=== PATIENT | female | born 1980 ===

== ENCOUNTER 2023-02-09 08:18 | Outpatient (REF) | payer OTHER, SELFPAY ==
[2023-02-09 08:32] LABS: MANUAL DIFF FLAG NO
[2023-02-09 08:51] LABS: Basophils Percent Auto 0.3 % (0-2); Eosinophils Absolute Auto 0.1 X10*3/uL (0.0-0.4); Eosinophils Percent Auto 1.2 % (0-4); Hematocrit 44.5 % (37.0-47.0); Hemoglobin 14.5 g/dl (12.0-16.0); Imm Gran Abs Auto 0.02 X10*3/uL (0.00-0.03); Imm Gran Pct Auto 0.3 % (0.0-0.4); Lymphocytes Absolute Auto 2.1 X10*3/uL (1.2-4.9); Lymphocytes Percent Auto 30.9 % (20-40); Mean Corpuscular HGB Conc 32.6 g/dl (31.0-35.0); Mean Corpuscular Volume 91.9 fL (80.0-98.0); Mean Platelet Volume 9.6 fL (9.4-12.3); Monocytes Absolute Auto 0.5 X10*3/uL (0.1-1.2); Monocytes Percent Auto 7.8 % (2-11); Neutrophils Percent Auto 59.5 % (45-73); Platelet Count 300 X10*3/uL (160-400); Red Blood Count 4.84 X10*6/uL (4.20-5.50); Red Cell Distribution Width 13.7 % (11.0-16.0); White Blood Count 6.8 X10*3/uL (4.8-10.8)
[2023-02-09 09:30] LABS: Alanine Aminotransferase 11 U/L (0-31); Albumin Level 3.6 g/dL (3.5-5.0); Alkaline Phosphatase 64 U/L (39-117); Anion Gap 11 (12-20); Aspartate Amino Transferase 14 U/L (5-31); Bilirubin Total 0.4 mg/dL (0.0-1.0); Blood Urea Nitrogen 12 mg/dL (9-16); Calcium 8.8 mg/dL (8.4-10.2); Carbon Dioxide 23 mmol/L (22-29); Chloride 109 mmol/L (96-108); Cholesterol 155 mg/dL; Estimated Glomerular Filt Rate > 60; Glucose Fasting 94 mg/dL (60-99); HDL Cholesterol 41 mg/dL; LDL Cholesterol Calculated 102 mg/dl; Potassium 4.3 mmol/L (3.3-5.1); Sodium 139 mmol/L (135-145); Total Protein 6.9 g/dL (6.5-8.0); Triglycerides 62 mg/dL
[2023-02-09 09:45] LABS: Thyroid Stimulating Hormone 1.11 uIU/mL (0.32-4.0)
== END 2023-02-09 08:19 | disposition home or self-care (01) ==
LOC: HO.LAB 08:18
PROVIDERS: PCP Internal Medicine; Visit Provider Internal Medicine
DX: Z00.00 Encounter for general adult medical examination without abnormal findings (principal); E66.01 Morbid (severe) obesity due to excess calories; Z68.42 Body mass index [BMI] 45.0-49.9, adult
CPT/HCPCS: 36415; 80053; 80061; 84443; 85025

== ENCOUNTER 2023-02-12 09:55 | Outpatient (REF) | payer OTHER, SELFPAY ==
--- NOTE | ~2023-02-12 | MM_ITS ---
EXAMINATION: MM SCREENING DIGITAL BREAST TOMOSYNTHESIS, BILATERAL CLINICAL INFORMATION: Screening. Asymptomatic. The lifetime risk of breast cancer based on the Tyrer-Cuzick Model is 10%. COMPARISON: Mammography: This is a baseline mammogram TECHNIQUE: Digital breast tomosynthesis is performed in both the craniocaudal and mediolateral oblique views along with computer-aided detection (CAD). Synthesized 2D images are generated from the tomosynthesis. FINDINGS: The breasts are heterogeneously dense, which may obscure small masses (ACR BI-RADS breast composition Category c). There are no significant masses, abnormal calcifications, or other abnormalities. MM/MM tomosynthesis screening BI IMPRESSION: No mammographic evidence of malignancy. ASSESSMENT: BI-RADS BI-RADS 1 - Negative RECOMMENDATION: Routine annual mammography screening. 1 year F/U This patient's information was entered into a reminder system with a target due date for their next mammogram.
== END 2023-02-12 09:56 | disposition home or self-care (01) ==
LOC: HO.MAMMO 09:55
PROVIDERS: PCP Internal Medicine; Visit Provider Internal Medicine
DX: Z12.31 Encounter for screening mammogram for malignant neoplasm of breast (principal)
CPT/HCPCS: 77063; 77067

== ENCOUNTER → 2023-02-12 10:00 | Outpatient (BNV) | payer OTHER, SELFPAY | PROVIDERS: PCP Internal Medicine; Visit Provider Radiology Diagnostic Radiology | DX: Z12.31 Encounter for screening mammogram for malignant neoplasm of breast (principal) | CPT/HCPCS: 77063; 77067 ==

== ENCOUNTER 2023-04-29 14:31 | Outpatient (REF) | payer OTHER, SELFPAY ==
[2023-04-30 09:44] LABS: CT PCR NOT DETECTED (Not Detect.); NG PCR NOT DETECTED (Not Detect.)
[2023-04-30 11:39] LABS: BV Int Neg Control Negative (Negative); BV Int Pos Control Positive (Positive)
[2023-05-04 04:53] LABS: HPV mRNA E6/E7 rflx Not Detected (Not Detected)
== END 2023-04-29 14:32 | disposition home or self-care (01) ==
LOC: HO.LNP 14:31
PROVIDERS: PCP Internal Medicine; Visit Provider Advanced Practice Midwife
DX: Z01.419 Encounter for gynecological examination (general) (routine) without abnormal findings (principal); Z11.51 Encounter for screening for human papillomavirus (HPV); Z20.2 Contact with and (suspected) exposure to infections with a predominantly sexual mode of transmission
CPT/HCPCS: 0353U; 87480; 87510; 87624; 87660; 88142

== ENCOUNTER 2023-04-29 14:31 | Outpatient (AMB) | payer OTHER, SELFPAY ==
[2023-04-29 14:40] VITALS: BP 128/80; BMI 46.9
--- NOTE | 2023-04-29 14:40 | MHC.OFFVIS ---
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 She has a history of abnormal Pap smears and leaps. She gave to 1 child 28 years ago by she was 14 years old at the time. She has been with the same partner for 20 years she has no particular worries about STIs but is open to testing. She gets regular normal periods and they are not a problem for her. 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 She was going to the gym with her mom but her mom's back was hurting so they had to stop that. She has been referred to the weight loss management program but has not heard anything yet and may walk over there to the office to check on the referral after this appointment. She has tried things like having a protein shake but it is hard to do at work, because there are social pressures from colleagues . [facility], [facility] Medical History (Updated 04/29/23 @ 15:39 by Stefanie Aguila CNM) Hx of LEEP (loop electrosurgical excision procedure) of cervix complicating Surgical History History of Family History Mother Hypertension Father HIV (human immunodeficiency virus infection) Substance use disorder Maternal Grandmother Breast cancer metastasized to lung Brother Mental health disorder Social History (Updated 04/29/23 @ 14:45 by TERI Vela) Housing: Apartment Alcohol intake: current Alcohol intake frequency: a few times a month Alcohol type: beer, wine and hard liquor Patient Tobacco Use Status: Current everyday Tobacco user Tobacco use type: Cigarette Cigarettes Per Day: 12 e-Cigarette/Vaping Use: Never Used Second Hand Smoke Exposure: No service: No Current occupational status: employed Current occupational exposures/hazards: No Cognitive needs: No Hearing needs: No Vision needs: Yes Female Reproductive History Menstrual Age of Menarche: 9 Duration of menses: 6-7 days Date of last menstrual period: 04/21/23 control method: none Total pregnancies: 1 Full term: 1 Number of Living Children: 1 Date of last pap smear: 10/08/14 (negative) History of abnormal pap smear: Yes (2013 2011 ASCUS, VERONICA 2-3 2011 2010) Date of Mammogram: 02/12/23 Physical Exam Vital Signs: Last Vital Signs BP 128/80 04/29/23 14:40 BMI result Body Mass Index 46.9 Const General: healthy appearing, comfortable, no acute distress, well developed and alert Nutritional Appearance: average body habitus and obese Orientation/consciousness: patient oriented x3 Limitations: no limitations HEENT Head: Yes normocephalic Neck Neck: Yes normal visual inspection Chest Chest palpation & inspection: normal inspection of the chest Breast/axilla inspection: normal inspection of the breasts and normal inspection of the axillae Breast/axilla palpation: normal palpation of the breasts and normal palpation of the axillae Resp Effort & Inspection: normal respiratory effort GI Inspection: Yes normal to inspection, No Abdominal wall edema and No distended Palpation (GI): Soft to palpation and nontender General: Yes bladder normal to palpation External Female Exam: normal external appearance and normal appearance of the urethra Speculum Exam - Vagina: normal appearance of the vagina, normal palpation and normal vaginal discharge Speculum Exam - Cervix: normal appearance of the cervix, normal palpation and nontender Bimanual exam- vagina & uterus: normal bimanual exam, normal palpation, uterine size normal, bladder normal to palpation, consistency normal, normal palpation, uterine mobility normal, uterine shape normal, No Cervical tenderness present, non-tender and no cervical motion tenderness Bimanual Exam- Adnexa, other: normal adnexae, no masses, normal and No adnexal tenderness Neuro General: patient oriented x3 Assessment & Plan Assessment & Plan (1) Screening for cervical cancer: Code(s): Z12.4 - Encounter for screening for malignant neoplasm of cervix (2) Morbid obesity with BMI of 45.0-49.9, adult: Code(s): E66.01 - Morbid (severe) obesity due to excess calories; Z68.42 - Body mass index [BMI] 45.0-49.9, adult (3) Hx of LEEP (loop electrosurgical excision procedure) of cervix complicating : Comment: 2011 Code(s): O34.40 - Maternal care for other abnormalities of cervix, unspecified trimester; Z98.890 - Other specified postprocedural states (4) Screen for sexually transmitted diseases: Code(s): Z11.3 - Encounter for screening for infections with a predominantly sexual mode of transmission (5) Well woman exam with routine gynecological exam: Code(s): Z01.419 - Encounter for gynecological examination (general) (routine) without abnormal findings Plan -----Discussed in this visit the following: healthy balanced diet, regular and consistent exercise, getting recommended health screens, doing the best she can for her particular health concerns, kegel exercises, pap smear screening and followup recommendations, mammography screening and SBE, normal changes in cycles in her life stage--- Discussed the many. challenges involved in trying to lose weight. Discussed the particular challenges that she faces with nozy coworkers watching every move she makes. Weight loss can be difficult enough when trying to just take care of her self. Also discussed the challenge of smoking cessation. Encouraged her to find a way to do things for for her own health and prioritize herself which is admittedly difficult Orders: Orders Hepatitis B Surface Antigen Today E66.01 - Morbid (severe) obesity due to excess calories, O34.40 - Maternal care for other abnormalities of cervix, unspecified trimester, Z01.419 - Encounter for gynecological examination (general) (routine) without abnormal findings, Z11.3 - Encounter for screening for infections with a predominantly sexual mode of transmission, Z12.4 - Encounter for screening for malignant neoplasm of cervix, Z68.42 - Body mass index [BMI] 45.0-49.9, adult, Z98.890 - Other specified postprocedural states Hepatitis C Antibody Today E66.01 - Morbid (severe) obesity due to excess calories, O34.40 - Maternal care for other abnormalities of cervix, unspecified trimester, Z01.419 - Encounter for gynecological examination (general) (routine) without abnormal findings, Z11.3 - Encounter for screening for infections with a predominantly sexual mode of transmission, Z12.4 - Encounter for screening for malignant neoplasm of cervix, Z68.42 - Body mass index [BMI] 45.0-49.9, adult, Z98.890 - Other specified postprocedural states Bacterial Vaginosis Panel Today Z01.419 - Encounter for gynecological examination (general) (routine) without abnormal findings CT NG by PCR Today Z01.419 - Encounter for gynecological examination (general) (routine) without abnormal findings HIV Ab/Ag Today E66.01 - Morbid (severe) obesity due to excess calories, O34.40 - Maternal care for other abnormalities of cervix, unspecified trimester, Z01.419 - Encounter for gynecological examination (general) (routine) without abnormal findings, Z11.3 - Encounter for screening for infections with a predominantly sexual mode of transmission, Z12.4 - Encounter for screening for malignant neoplasm of cervix, Z68.42 - Body mass index [BMI] 45.0-49.9, adult, Z98.890 - Other specified postprocedural states Syphilis Screen Today E66.01 - Morbid (severe) obesity due to excess calories, O34.40 - Maternal care for other abnormalities of cervix, unspecified trimester, Z01.419 - Encounter for gynecological examination (general) (routine) without abnormal findings, Z11.3 - Encounter for screening for infections with a predominantly sexual mode of transmission, Z12.4 - Encounter for screening for malignant neoplasm of cervix, Z68.42 - Body mass index [BMI] 45.0-49.9, adult, Z98.890 - Other specified postprocedural states Pap Smear Today Z01.419 - Encounter for gynecological examination (general) (routine) without abnormal findings Coding Level of Care Code New Pt Prev Care 40-64y(47711) Diagnoses Screening for cervical cancer Z12.4 Morbid obesity with BMI of 45.0-49.9, adult E66.01; Z68.42 Hx of LEEP (loop electrosurgical excision procedure) of cervix complicating O34.40; Z98.890 Screen for sexually transmitted diseases Z11.3 Well woman exam with routine gynecological exam Z01.419
== END 2023-04-29 15:40 | disposition home or self-care (01) ==
PROVIDERS: PCP Internal Medicine; Visit Provider Advanced Practice Midwife
DX: Z01.419 Encounter for gynecological examination (general) (routine) without abnormal findings (principal); E66.01 Morbid (severe) obesity due to excess calories; Z68.42 Body mass index [BMI] 45.0-49.9, adult
CPT/HCPCS: 99386

== ENCOUNTER 2023-05-14 09:28 | Outpatient (REF) | payer OTHER, SELFPAY ==
[2023-05-14 10:36] LABS: Syphilis Screen Nonreactive (Nonreactive)
[2023-05-14 10:46] LABS: HBsAGNum1 0.62 S/CO (0.00-0.99); HIV AB/AG Nonreactive (Nonreactive); HIV Num 1 0.06 S/CO (0.00-0.99); Hepatitis B Surface Antigen Negative (Negative); ~Hepatitis C Antibody Nonreactive (Nonreactive)
== END 2023-05-14 09:29 | disposition home or self-care (01) ==
LOC: HO.LAB 09:28
PROVIDERS: PCP Internal Medicine; Visit Provider Advanced Practice Midwife
DX: E66.01 Morbid (severe) obesity due to excess calories (principal); Z68.42 Body mass index [BMI] 45.0-49.9, adult; Z98.890 Other specified postprocedural states; Z20.2 Contact with and (suspected) exposure to infections with a predominantly sexual mode of transmission
CPT/HCPCS: 36415; 86780; 86803; 87340; 87389

== ENCOUNTER 2023-06-16 14:02 | Outpatient (AMB) | payer OTHER, SELFPAY ==
--- NOTE | 2023-06-16 14:14 | A.OFFPC_ITS ---
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 Accompanied by: Self / Same As Patient Allergies No Known Allergies Allergy (Verified 06/16/23 14:39) Medication List - Last Reconciled 06/16/23 by Yina Byrd MD No Known Home Meds Tobacco use date assessed: 02/09/23 Dental Screening Dental Screen Date: 06/16/23 Did you have a dental visit in the last 12 months?: Yes Did you have a dental problem in the last 6 months where you did not have access to dental care?: No Was dental information given to patient?: Patient has dentist HPI HPI Comments History of Present Illness Details This is a 42-year-old female with morbid obesity that complains of a skin lesion that is pruritic and I will refer her to Dermatology. She is interested in weight management but will let me now what weight management takes her insurance. Denies any chest pain shortness of breath. Labs were discussed and were within normal limits. [facility] Medical History (Updated 06/16/23 @ 14:49 by Yina Byrd MD) Hx of LEEP (loop electrosurgical excision procedure) of cervix complicating Surgical History History of Family History Mother Hypertension Father HIV (human immunodeficiency virus infection) Substance use disorder Maternal Grandmother Breast cancer metastasized to lung Brother Mental health disorder Social History Housing: Apartment Alcohol intake: current Alcohol intake frequency: a few times a month Alcohol type: beer, wine and hard liquor Patient Tobacco Use Status: Current everyday Tobacco user Tobacco use type: Cigarette Cigarettes Per Day: 12 e-Cigarette/Vaping Use: Never Used Second Hand Smoke Exposure: No service: No Current occupational status: employed Current occupational exposures/hazards: No Cognitive needs: No Hearing needs: No Vision needs: Yes Female Reproductive History Menstrual Age of Menarche: 9 Questionnaire Thrive Questionnaire Date Thrive assessed: 02/09/23 ANITA-7 AMB Questionnaire ANITA-7 Date ANITA - 7 assessed: 02/09/23 Source: Developed by Drs. Hans Anaya, Yvonne Burciaga, Michael Granado and colleagues, with an educational ray from [employer]. Review of Systems Const All systems reviewed & are unremarkable except as noted in HPI and below Eyes Reports no additional complaints, Denies change in vision and Denies other visual disturbances Card Denies chest pain at rest, Denies chest pain with activity, Denies edema, Denies irregular heart rhythm, Denies claudication, Denies dyspnea, Denies dyspnea on exertion, Denies orthopnea, Denies paroxysmal nocturnal dyspnea and Denies slow heart rate Resp Denies cough, Denies dyspnea and Denies dyspnea on exertion GI Denies abdominal pain, Denies change in bowel habits, Denies excessive flatus, Denies nausea and Denies vomiting Denies urinary incontinence, Denies urinary hesitancy and Denies urinary urgency Musc Denies abnormal gait, Denies atrophy, Denies deformity and Denies limited range of motion Skin/Breast Denies bleeding lesions, Denies changing lesions and Denies rash Neuro Denies abnormal gait and Denies lack of coordination Physical exam (Primary Care) Vital Signs: Last Vital Signs Pulse 77 06/16/23 14:15 BP 148/88 H 06/16/23 14:15 Pulse Ox 99 06/16/23 14:15 Oxygen Delivery Method Room Air 06/16/23 14:15 BMI result Body Mass Index 47.0 Tobacco/Smoking Status: Tobacco use Status Tobacco use date assessed 02/09/23 06/16/23 14:20 Patient Tobacco Use Status Current everyday Tobacco 06/16/23 14:20 Tobacco use type Cigarette 06/16/23 14:20 e-Cigarette/Vaping Use Never Used 06/16/23 14:20 Thrive Assessment: Date of Thrive Assessment Date Thrive assessed 02/09/23 06/16/23 14:20 Eyes General: appearance normal, both eyes and all related structures Eyelids: Yes eyelids normal Conjunctivae: conjunctivae normal Neck Neck: Yes normal visual inspection and Yes supple Resp Effort & Inspection: normal respiratory effort Auscultation: clear to auscultation bilaterally Cardio Jugular venous distension: no JVD Rate: regular rate Rhythm: regular rhythm Heart sounds: S1 normal heart sound present and S2 normal heart sound present Extrem General: Yes full ROM Office Procedures Flu Questionnaire Does the patient have a severe egg allergy?: No Immunizations flu vacc [id number] 6mos up(PF) 60 mcg(15 mcgx4)/0.5 mL IM syringe Performing Provider: Yina Byrd MD [facility] Documented (not given) by: TERI Marte on 06/16/23 14:21 Reason Not Given: Patient Refused Assessment and Plan Assessment & Plan (1) Morbid obesity with BMI of 45.0-49.9, adult: Code(s): E66.01 - Morbid (severe) obesity due to excess calories; Z68.42 - Body mass index [BMI] 45.0-49.9, adult Plan: Consider weight management. BMI goal is less than 30. (2) Skin lesion: Code(s): L98.9 - Disorder of the skin and subcutaneous tissue, unspecified Plan: Referred to dermatology. Orders: Orders Influenza [id number] Immunization Today Z23 - Encounter for immunization Referrals Dermatology Referral L98.9 - Disorder of the skin and subcutaneous tissue, unspecified Coding Level of Care Code Est Pt Level 3 (72834) Diagnoses Morbid obesity with BMI of 45.0-49.9, adult E66.01; Z68.42 Skin lesion L98.9 Time Spent (min) 17
[2023-06-16 14:15] VITALS: BP 148/88; PULSE 77; O2SAT 99; BMI 47.0
== END 2023-06-16 14:48 | disposition home or self-care (01) ==
PROVIDERS: PCP Internal Medicine; Visit Provider Internal Medicine
DX: E66.01 Morbid (severe) obesity due to excess calories (principal); Z68.42 Body mass index [BMI] 45.0-49.9, adult; L98.9 Disorder of the skin and subcutaneous tissue, unspecified
CPT/HCPCS: 99213

== ENCOUNTER 2024-01-13 09:15 | Outpatient (REF) | payer OTHER, SELFPAY ==
[2024-01-13 11:00] LABS: Appearance Urine Clear; Color Urine Yellow; Glucose Urine UA Negative (Negative); PH 6.5 (5.0-9.0); Specific Gravity - Urine 1.015 (1.005-1.025); Urine Blood Negative (Negative)
[2024-01-13 11:01] LABS: Leukocyte Esterase Urine Negative (Negative); Nitrite Urine Negative (Negative); Urine Ketones Negative (Negative); Urine Protein Negative (Neg-Trace)
== END 2024-01-13 09:16 | disposition home or self-care (01) ==
LOC: HO.LAB 09:15
PROVIDERS: PCP Internal Medicine; Visit Provider Internal Medicine
DX: R30.0 Dysuria (principal)
CPT/HCPCS: 81003

== ENCOUNTER 2024-02-18 09:54 | Outpatient (REF) | payer OTHER, SELFPAY ==
--- NOTE | ~2024-02-18 | MM_ITS ---
EXAMINATION: MM SCREENING DIGITAL BREAST TOMOSYNTHESIS, BILATERAL CLINICAL INFORMATION: Screening. Asymptomatic. COMPARISON: Mammography: This study is compared with prior exams dating back to 2022. TECHNIQUE: Digital breast tomosynthesis is performed in both the craniocaudal and mediolateral oblique views along with computer-aided detection (CAD). Synthesized 2D images are generated from the tomosynthesis. FINDINGS: The breasts are heterogeneously dense, which may obscure small masses (ACR BI-RADS breast composition Category c). There are no significant masses, abnormal calcifications, or other abnormalities. MM/MM tomosynthesis screening BI IMPRESSION: No mammographic evidence of malignancy. ASSESSMENT: BI-RADS BI-RADS 1 - Negative RECOMMENDATION: Routine annual mammography screening. 1 year F/U This examination should not preclude the clinical evaluation of a suspicious palpable abnormality. This patient's information was entered into a reminder system with a target due date for their next mammogram.
== END 2024-02-18 09:55 | disposition home or self-care (01) ==
LOC: HO.MAMMO 09:54
PROVIDERS: PCP Internal Medicine; Visit Provider Internal Medicine
DX: Z12.31 Encounter for screening mammogram for malignant neoplasm of breast (principal)
CPT/HCPCS: 77063; 77067

== ENCOUNTER → 2024-02-18 10:00 | Outpatient (BNV) | payer OTHER, SELFPAY | PROVIDERS: PCP Internal Medicine; Visit Provider Radiology Diagnostic Radiology | DX: Z12.31 Encounter for screening mammogram for malignant neoplasm of breast (principal) | CPT/HCPCS: 77063; 77067 ==

== ENCOUNTER 2024-02-24 07:24 | Outpatient (AMB) | payer OTHER, SELFPAY ==
[2024-02-24 07:30] VITALS: BP 128/70; PULSE 68; O2SAT 98; BMI 48.6
--- NOTE | 2024-02-24 07:30 | A.OFFPC_ITS ---
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 Accompanied by: Self / Same As Patient Allergies No Known Allergies Allergy (Verified 02/24/24 07:41) Medication List - Last Reconciled 02/24/24 by Yina Byrd MD No Known Home Meds Tobacco use date assessed: 02/24/24 Dental Screening Dental Screen Date: 02/24/24 Did you have a dental visit in the last 12 months?: Yes Did you have a dental problem in the last 6 months where you did not have access to dental care?: No Was dental information given to patient?: Patient has dentist HPI HPI Comments History of Present Illness Details This is a 43-year-old female with morbid obesity that comes for her physical exam. Pap smear done 2022 was normal. Mammogram done this month and results are still pending. Has never had a colonoscopy and has no family history of colon cancer. Prefers to do Cologuard. Did not receive a call from weight management for her obesity. I will start her on wegovy if insurance approves. Has tried diet and exercise with no relief. She has a smoker and was advised to quit. Will like to try Chantix and side effects such as suicidal ideation were discussed. Patient is aware that if suicidal ideation happens she needs to discontinue it immediately. Has no acute complaints. [facility] Medical History (Updated 02/24/24 @ 07:58 by Yina Byrd MD) Screen for sexually transmitted diseases Screening for cervical cancer Hx of LEEP (loop electrosurgical excision procedure) of cervix complicating Surgical History History of Family History Mother Hypertension Father HIV (human immunodeficiency virus infection) Substance use disorder Maternal Grandmother Breast cancer metastasized to lung Brother Mental health disorder Social History Housing: Apartment Alcohol intake: current Alcohol intake frequency: a few times a month Alcohol type: beer, wine and hard liquor Patient Tobacco Use Status: Current everyday Tobacco user Tobacco use type: Cigarette Cigarettes Per Day: 10 e-Cigarette/Vaping Use: Never Used Second Hand Smoke Exposure: Yes service: No Current occupational status: employed Current occupational exposures/hazards: No Cognitive needs: No Hearing needs: No Vision needs: Yes Female Reproductive History Menstrual Age of Menarche: 9 Questionnaire PHQ-9 Over the last 2 weeks, how often have you been bothered by any of the following problems? 1. Little interest or pleasure in doing things: not at all 2. Feeling down, depressed, or hopeless: not at all 3. Trouble falling or staying asleep, or sleeping too much: not at all 4. Feeling tired or having little energy: not at all 5. Poor appetite or overeating: not at all 6. Feeling bad about yourself - or that you are a failure or have let yourself or your family down: not at all 7. Trouble concentrating on things, such as reading the newspaper or watching television: not at all 8. Moving or speaking so slowly that other people could have noticed. Or the opposite - being so fidgety or restless that you have been moving around a lot more than usual: not at all 9. Thoughts that you would be better off or of hurting yourself in some way: not at all Total score: 0 Depression Screening Interpretation: Negative Depression Screening Done: Yes 71849 - PHQ-9 Billing: Yes Source: Developed by Drs. Hans Anaya, Yvonne Burciaga, Michael Granado and colleagues, with an educational ray from [employer]. Thrive Questionnaire Date Thrive assessed: 02/24/24 I am a: Patient What is your living situation today?: I have a steady place to live Within the past 12 months, did the food you bought not last and you didn't have the money to get more?: Never true Within the past 12 months, did you worry whether your food would run out before you got money to buy more?: Never true Do you have trouble paying for medicines?: No Do you have trouble getting transportation to medical appointments?: No Do you have trouble paying your heating and electricity bill?: No Do you have trouble taking care of your child, family member or friend?: No Do you have trouble with day-to-day activities such as bathing, preparing meals, shopping, managing finances, etc.?: No Are you currently unemployed and looking for a job?: No Are you interested in more education?: No Currently or been in a relationship where the following occur: No concerns reported THRIVE Score: 0 AUDIT C Alcohol Use Questionnaire (AUDIT-C) 1. How often do you have a drink containing alcohol?: 2-4 times a month 2. How many drinks containing alcohol do you have on a typical day when you are drinking?: 1 or 2 3. How often do you have six or more drinks on one occasion?: Never Total Score: 2 Score Reviewed/Action Taken: No ANITA-7 AMB Questionnaire ANITA-7 Date ANITA - 7 assessed: 02/24/24 Feeling nervous, anxious, or on edge: 0 = Not at all Not being able to stop or control worryin = Not at all Worrying too much about different things: 0 = Not at all Trouble relaxin = Not at all Being so restless that it is hard to sit still: 0 = Not at all Becoming easily annoyed or irritable: 0 = Not at all Feeling afraid as if something awful might happen: 0 = Not at all Total ANITA-7 score (0-4 normal; 5-9 mild; 10-14 moderate; 15-21 severe): 0 Source: Developed by Drs. Hans Anaya, Yvonne Burciaga, Michael Granado and colleagues, with an educational ray from [employer]. ANITA-7 Assessment Billing ANITA-7 Assessment Tool: ANITA-7 Assessment 35254 Review of Systems Const All systems reviewed & are unremarkable except as noted in HPI and below ENT Denies change in voice, Denies nasal discharge and Denies sinus pain Card Denies chest pain at rest, Denies chest pain with activity, Denies edema, Denies irregular heart rhythm, Denies claudication, Denies dyspnea, Denies dyspnea on exertion, Denies orthopnea, Denies paroxysmal nocturnal dyspnea and Denies slow heart rate Resp Denies cough, Denies dyspnea and Denies dyspnea on exertion GI Denies abdominal pain, Denies change in bowel habits, Denies excessive flatus, Denies nausea and Denies vomiting Physical exam (Primary Care) Vital Signs: Last Vital Signs Pulse 68 02/24/24 07:30 BP 128/70 02/24/24 07:30 Pulse Ox 98 02/24/24 07:30 Oxygen Delivery Method Room Air 02/24/24 07:30 BMI result Body Mass Index 48.6 BMI Assessment/Plan discussion: High BMI High, discussed plan: lifestyle, weight reduction, dietary, physical activity and alcohol moderation Tobacco/Smoking Status: Tobacco use Status Tobacco use date assessed 02/24/24 02/24/24 07:33 Patient Tobacco Use Status Current everyday Tobacco 02/24/24 07:33 Tobacco use type Cigarette 02/24/24 07:33 e-Cigarette/Vaping Use Never Used 02/24/24 07:33 Are you ready to quit: Yes Tobacco cessation counseling provided: Yes Items discussed: QuitWorks and Other (Will start Chantix) Relapse Prevention: discussed the importance of a supportive environment, discussed negative mood or depression after quitting, weight gain after smoking is common and discussed dietary, exercise and/or lifestyle changes Number of minutes spent counselin CPT code: 77506 - 4-10 Minutes PHQ-9: PHQ-9 Score PHQ-9: Total score 0 02/24/24 07:44 Depression Screening Interpretation: Negative Thrive Assessment: Date of Thrive Assessment Date Thrive assessed 02/24/24 02/24/24 07:33 Currently or been in a relationship where the following occur: No concerns reported [facility] Head: Yes normal to inspection, Yes normocephalic and Yes atraumatic Ears: external ears normal Eyes General: appearance normal, both eyes and all related structures Eyelids: Yes eyelids normal Conjunctivae: conjunctivae normal Neck Neck: Yes normal visual inspection and Yes supple Resp Effort & Inspection: normal respiratory effort Auscultation: clear to auscultation bilaterally Cardio Jugular venous distension: no JVD Rate: regular rate Rhythm: regular rhythm Heart sounds: S1 normal heart sound present and S2 normal heart sound present GI Inspection: Yes normal to inspection Palpation (GI): Soft to palpation and nontender Auscultation: normal bowel sounds Skin General skin exam: no rashes or lesions noted Neuro General: no focal motor deficits Extrem General: Yes full ROM Psych Appearance: grossly normal Assessment and Plan Assessment & Plan (1) Physical exam: Code(s): Z00.00 - Encounter for general adult medical examination without abnormal findings Plan: Repeat in a year. (2) Morbid obesity with BMI of 45.0-49.9, adult: Code(s): E66.01 - Morbid (severe) obesity due to excess calories; Z68.42 - Body mass index [BMI] 45.0-49.9, adult Plan: Start diet and exercise. BMI goal is less than 30. Start Wegovy. Orders: Orders Comprehensive Chapman. Panel Fast Today Z00.00 - Encounter for general adult medical examination without abnormal findings Lipid Panel Today Z00.00 - Encounter for general adult medical examination without abnormal findings UA CC w/rflx Micro + Cult Today R30.0 - Dysuria Referrals Cologuard Test Z12.11 - Encounter for screening for malignant neoplasm of colon, Z12.12 - Encounter for screening for malignant neoplasm of rectum Medications: New semaglutide (weight loss) (Wegovy) administer weeks 1 through 4 of therapy 0.25 mg (0.5 mL) subcut QWEEK 4 weeks 2 mL 0RF E66.01 - Morbid (severe) obesity due to excess calories, Z68.42 - Body mass index [BMI] 45.0-49.9, adult varenicline (Chantix Starting Month Box) 1 ea PO PER PKG DIR 30 days 53 ea 0RF Coding Level of Care Code Est Pt Prev Care 40-64y(51421) Diagnoses Physical exam Z00.00 Morbid obesity with BMI of 45.0-49.9, adult E66.01; Z68.42 Additional Codes ANITA-7 Assessment Billing - ANITA-7 Assessment Tool: ANITA-7 Assessment 84304 ([id number]) Vital Signs *Quality* - CPT code: 59583 - 4-10 Minutes ([id number]) Time Spent (min) 33
== END 2024-02-24 07:52 | disposition home or self-care (01) ==
PROVIDERS: PCP Internal Medicine; Visit Provider Internal Medicine
DX: Z00.00 Encounter for general adult medical examination without abnormal findings (principal); E66.01 Morbid (severe) obesity due to excess calories; Z68.42 Body mass index [BMI] 45.0-49.9, adult; F17.210 Nicotine dependence, cigarettes, uncomplicated
CPT/HCPCS: 99396; 99406

== ENCOUNTER 2024-03-10 07:21 | Outpatient (REF) | payer OTHER, SELFPAY ==
[2024-03-10 08:31] LABS: Alanine Aminotransferase 12 U/L (0-31); Albumin Level 3.8 g/dL (3.5-5.0); Alkaline Phosphatase 72 U/L (39-117); Anion Gap 13 (12-20); Aspartate Amino Transferase 17 U/L (5-31); Bilirubin Total 0.2 mg/dL (0.0-1.0); Blood Urea Nitrogen 17 mg/dL (9-16); Calcium 8.7 mg/dL (8.4-10.2); Carbon Dioxide 19 mmol/L (22-29); Chloride 109 mmol/L (96-108); Cholesterol 167 mg/dL (<200); Estimated Glomerular Filt Rate > 60; Glucose Fasting 117 mg/dL (60-99); HDL Cholesterol 49 mg/dL (>40); LDL Cholesterol Calculated 108 mg/dL (<100); Potassium 4.1 mmol/L (3.3-5.1); Sodium 137 mmol/L (135-145); Total Protein 7.2 g/dL (6.5-8.0); Triglycerides 51 mg/dL (<150)
== END 2024-03-10 07:22 | disposition home or self-care (01) ==
LOC: HO.LAB 07:21
PROVIDERS: PCP Internal Medicine; Visit Provider Internal Medicine
DX: Z00.00 Encounter for general adult medical examination without abnormal findings (principal)
CPT/HCPCS: 36415; 80053; 80061

== ENCOUNTER 2024-08-04 13:38 | Outpatient (AMB) | payer OTHER, SELFPAY ==
[2024-08-04 13:58] VITALS: BP 132/70; BMI 51.0
--- NOTE | 2024-08-04 13:58 | MHC.OFFVIS ---
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 She has a 30-year-old delivered by she has not been contraceptive because she never got all these years so she does not bother anymore. She is sexually active she would like testing for STIs just to be sure. Her only concern is that in the last while her periods have been 1 month heavy in 1 month light and the month that they are heavy sometimes she will get her typical pattern of a light 1st day heavy and crampy 2nd and 3rd the but then it may stop for a full day and then she gets very severe cramping and the periods starts heavy again with clots and the cramping gets s better after the clots have come out. Discussed the fact that she is essentially nulliparous having delivered her baby by and that probably contributes to this. Discussed that as her periods get heavier if a clot forms before it has come through the internal os there will be necessarily heavy cramping in order to help dilate the cervix enough to get the clot pass and that is probably what she is experiencing discussed possible methods of control that might make the periods clamp jig assembler and therefore alleviate this phenomenon for her which basically would involve a Mirena IU S discussed that at least she is getting very normal regular periods so that part is normal discussed the role of elevated bodily hormones with high BMI in contributing to often in irregular bleeding pattern which is a more challenging issue to deal with.\ She is up-to-date on her mammograms. [facility] Medical History Screen for sexually transmitted diseases Screening for cervical cancer Hx of LEEP (loop electrosurgical excision procedure) of cervix complicating Surgical History History of Family History Mother Hypertension Father HIV (human immunodeficiency virus infection) Substance use disorder Maternal Grandmother Breast cancer metastasized to lung Brother Mental health disorder Social History Housing: Apartment Alcohol intake: current Alcohol intake frequency: a few times a month Alcohol type: beer, wine and hard liquor Patient Tobacco Use Status: Current everyday Tobacco user Tobacco use type: Cigarette Cigarettes Per Day: 10 e-Cigarette/Vaping Use: Never Used Second Hand Smoke Exposure: Yes service: No Current occupational status: employed Current occupational exposures/hazards: No Cognitive needs: No Hearing needs: No Vision needs: Yes Female Reproductive History Menstrual Age of Menarche: 9 Date of last menstrual period: 07/31/24 control method: none Total pregnancies: 1 Full term: 1 Date of last pap smear: 04/30/23 (negative pap-hpv) Date of Mammogram: 02/18/24 (negative) Physical Exam Vital Signs: Last Vital Signs BP 132/70 08/04/24 13:58 BMI result Body Mass Index 51.0 Const General: healthy appearing, comfortable, no acute distress, well developed and alert Nutritional Appearance: average body habitus Orientation/consciousness: patient oriented x3 Limitations: no limitations HEENT Head: Yes normocephalic Neck Neck: Yes normal visual inspection Chest Chest palpation & inspection: normal inspection of the chest Breast/axilla inspection: normal inspection of the breasts and normal inspection of the axillae Breast/axilla palpation: normal palpation of the breasts and normal palpation of the axillae Resp Effort & Inspection: normal respiratory effort GI Inspection: Yes normal to inspection, No Abdominal wall edema and No distended Palpation (GI): Soft to palpation and nontender Other: Normal external exam Exam adipose tissue noted. Vagina pink and moist nulliparous tightly closed healthy appearing cervix trickle of end of menses blood noted cervix is long close thick mobile nontender uterus midposition mobile nontender adnexa nontender good tone with Kegel. General: Yes bladder normal to palpation External Female Exam: normal external appearance and normal appearance of the urethra Speculum Exam - Vagina: normal appearance of the vagina, normal palpation and normal vaginal discharge Speculum Exam - Cervix: normal appearance of the cervix, normal palpation and nontender Bimanual exam- vagina & uterus: normal bimanual exam, normal palpation, uterine size normal, bladder normal to palpation, consistency normal, normal palpation, uterine mobility normal, uterine shape normal, No Cervical tenderness present, non-tender and no cervical motion tenderness Bimanual Exam- Adnexa, other: normal adnexae, no masses, normal and No adnexal tenderness Neuro General: patient oriented x3 Assessment & Plan Assessment & Plan (1) Hx of LEEP (loop electrosurgical excision procedure) of cervix complicating : Comment: 2011; 04/29/2023 Pap is negative with negative HPV. 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 She has a 30-year-old delivered by she has not been contraceptive because she never got all these years so she does not bother anymore. She is sexually active she would like testing for STIs just to be sure. Her only concern is that in the last while her periods have been 1 month heavy in 1 month light and the month that they are heavy sometimes she will get her typical pattern of a light 1st day heavy and crampy 2nd and 3rd the but then it may stop for a full day and then she gets very severe cramping and the periods starts heavy again with clots and the cramping gets s better after the clots have come out. Discussed the fact that she is essentially nulliparous having delivered her baby by and that probably contributes to this. Discussed that as her periods get heavier if a clot forms before it has come through the internal os there will be necessarily heavy cramping in order to help dilate the cervix enough to get the clot pass and that is probably what she is experiencing discussed possible methods of control that might make the periods clamp jig assembler and therefore alleviate this phenomenon for her which basically would involve a Mirena IU S discussed that at least she is getting very normal regular periods so that part is normal discussed the role of elevated bodily hormones with high BMI in contributing to often in irregular bleeding pattern which is a more challenging issue to deal with. I also then reviewed her medical history with her she says she is not on any medications but her doctor the last time she saw her in February ordered blood work for her and also gave her a prescription for would go the help with weight loss but it was going to cost her between 1100, and 1200 dollars per shot, so she has not been able to get that. I asked her how her fasting blood sugar was and she did not really know so we looked it up together and it was in the prediabetic range. Reviewed that her doctor probably does not know that she has not been able to get this prescription yet and that it would be helpful thing to have a visit with her sooner rather than waiting for next February and discuss all of this together with her because a diagnosis of pre diabetes may make a difference as to whether not her insurance would cover the medication. I could not promised it and did not do so but it would be worth having a discussion about it because weight loss will help her over all. In terms of the Mirena she maybe interested in this and she is going think about it and if she decides she wants to try it I recommend that she call the minute her. Is starting and try to arrange for to be on 1 of the 1st 2 heavy days of her menstrual flow because that is when her cervix will be softer and allow for less painful insertion of a A Mirena. Orders: Orders Pap Smear Today Z01.419 - Encounter for gynecological examination (general) (routine) without abnormal findings CT NG by PCR Today N89.8 - Other specified noninflammatory disorders of vagina, Z20.2 - Contact with and (suspected) exposure to infections with a predominantly sexual mode of transmission Bacterial Vaginosis Panel Today N89.8 - Other specified noninflammatory disorders of vagina HIV Ab/Ag Today E66.01 - Morbid (severe) obesity due to excess calories, O34.40 - Maternal care for other abnormalities of cervix, unspecified trimester, R73.09 - Other abnormal glucose, Z01.419 - Encounter for gynecological examination (general) (routine) without abnormal findings, Z98.890 - Other specified postprocedural states Hepatitis B Surface Antigen Today E66.01 - Morbid (severe) obesity due to excess calories, O34.40 - Maternal care for other abnormalities of cervix, unspecified trimester, R73.09 - Other abnormal glucose, Z01.419 - Encounter for gynecological examination (general) (routine) without abnormal findings, Z98.890 - Other specified postprocedural states Hepatitis C Antibody Today E66.01 - Morbid (severe) obesity due to excess calories, O34.40 - Maternal care for other abnormalities of cervix, unspecified trimester, R73.09 - Other abnormal glucose, Z01.419 - Encounter for gynecological examination (general) (routine) without abnormal findings, Z98.890 - Other specified postprocedural states Syphilis Screen Today E66.01 - Morbid (severe) obesity due to excess calories, O34.40 - Maternal care for other abnormalities of cervix, unspecified trimester, R73.09 - Other abnormal glucose, Z01.419 - Encounter for gynecological examination (general) (routine) without abnormal findings, Z98.890 - Other specified postprocedural states Coding Level of Care Code Est Pt Prev Care 40-64y(61384) Diagnoses Hx of LEEP (loop electrosurgical excision procedure) of cervix complicating O34.40; Z98.890 Well woman exam with routine gynecological exam Z01.419 Obesity, morbid, BMI 50 or higher E66.01 Elevated glucose level R73.09
== END 2024-08-04 15:18 | disposition home or self-care (01) ==
LOC: HO.HWSM 13:38
PROVIDERS: PCP Internal Medicine; Visit Provider Advanced Practice Midwife
DX: Z01.419 Encounter for gynecological examination (general) (routine) without abnormal findings (principal); E66.01 Morbid (severe) obesity due to excess calories; Z68.43 Body mass index [BMI] 50.0-59.9, adult
CPT/HCPCS: 99396; 99459

== ENCOUNTER 2024-08-04 13:38 | Outpatient (REF) | payer OTHER, SELFPAY ==
[2024-08-05 07:12] LABS: CT PCR NOT DETECTED (Not Detect.); NG PCR NOT DETECTED (Not Detect.)
[2024-08-05 13:26] LABS: Bacterial Vaginosis PCR NEGATIVE (Negative); Candida Group PCR NOT DETECTED (Not Detect); Candida glab krusei PCR NOT DETECTED (Not Detect); Trichomonas vaginalis PCR NOT DETECTED (Not Detect)
[2024-08-07 09:35] LABS: HPV 16,18/45 See PAP report
== END 2024-08-04 13:39 | disposition home or self-care (01) ==
LOC: HO.LNP 13:38
PROVIDERS: PCP Internal Medicine; Visit Provider Advanced Practice Midwife
DX: Z01.419 Encounter for gynecological examination (general) (routine) without abnormal findings (principal); N89.8 Other specified noninflammatory disorders of vagina; Z20.2 Contact with and (suspected) exposure to infections with a predominantly sexual mode of transmission
CPT/HCPCS: 0352U; 87491; 87591; 87624; 88175

== ENCOUNTER 2024-08-04 15:00 | Outpatient (REF) | payer OTHER, SELFPAY | END 2024-08-04 15:01 | disposition home or self-care (01) | LOC: HO.LAB 15:00 | PROVIDERS: Visit Provider Advanced Practice Midwife | DX: Z13.89 Encounter for screening for other disorder (principal) ==